=== PATIENT | male | born 2005 | race Caucasian/White ===

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

== ENCOUNTER 2023-12-09 00:53 | Emergency (ER) | payer OTHER, SELFPAY ==
[~2023-12-09] VITALS: Ht 185.4 cm; Wt 107.0 kg
[2023-12-09] MEDS ORDERED: PEPC1TAB5 PO (04:03)
[2023-12-09 04:27] VITALS: BP 124/59; TEMP 97.7; O2SAT 95
[2023-12-09] MEDS: FAMOTIDINE 20 MG TAB PO ONE (04:31)
== END 2023-12-09 04:32 | disposition home or self-care (01) ==
LOC: M ED 00:53
DX: K29.00 Acute gastritis without bleeding (principal); F90.9 Attention-deficit hyperactivity disorder, unspecified type; Z79.1 Long term (current) use of non-steroidal anti-inflammatories (NSAID); Z79.899 Other long term (current) drug therapy